=== PATIENT | male | born 1975 | race Caucasian/White ===

== ENCOUNTER 2016-10-22 15:22 | Emergency (ER) | payer MEDICARE, OTHER ==
[2016-10-22 16:08] LABS: HEMOGLOBIN 12.1 gm/dl (14.0-17.5); RED BLOOD COUNT 3.83 M/UL (4.20-5.50); WHITE BLOOD COUNT 15.7 K/UL (4.5-11.0)
[2017-01-19] MEDS ORDERED: CLARITIN 10MG T10 MG PO (04:28)
[2017-01-19] MEDS ORDERED: LEXAPRO TAB 1010 MG PO (04:30)
[2017-01-19] MEDS ORDERED: PROAIR HFA8.5 GM INH (04:39)
[2017-01-19] MEDS ORDERED: SPIRIVA18 MCG INH (04:40)
== END 2016-10-22 19:20 | disposition short-term general hospital (02) ==
LOC: ER1 15:22
PROVIDERS: Emergency Medicine
DX: A41.9 Sepsis, unspecified organism (principal); J18.9 Pneumonia, unspecified organism; R65.21 Severe sepsis with septic shock; K72.00 Acute and subacute hepatic failure without coma; N17.9 Acute kidney failure, unspecified; Z86.73 Personal history of transient ischemic attack (TIA), and cerebral infarction without residual deficits; Z88.0 Allergy status to penicillin; Z88.2 Allergy status to sulfonamides; Z88.5 Allergy status to narcotic agent; Z79.01 Long term (current) use of anticoagulants; Z79.899 Other long term (current) drug therapy
CPT/HCPCS: 36415; 51702; 70450; 71010; 80053; 80307; 81001; 82550; 82553; 82803; 82962; 83605; 83690; 83874; 83880; 84484; 85025; 85610; 85730; 87040; 87086; 93005; 96361; 96365; 96375; 99291; 99292; G0480; J0132; J0692; J7030; J7050

== ENCOUNTER 2016-11-11 00:48 | Inpatient (IN) | payer MEDICARE, OTHER ==
[~2016-11-11] VITALS: Ht 182.9 cm; Wt 54.0 kg
[2016-11-11 02:21] LABS: HEMOGLOBIN 14.3 gm/dl (14.0-17.5); RED BLOOD COUNT 4.55 M/UL (4.20-5.50); WHITE BLOOD COUNT 7.3 K/UL (4.5-11.0)
[2016-11-11] MEDS ORDERED: SPIRIVA18 MCG INH (08:29)
[2016-11-11] MEDS ORDERED: TENORMIN 25 MG25 MG PO (08:29)
[2016-11-11] MEDS ORDERED: PROVENTIL HFA 61 INH INH (08:29)
[2016-11-11] MEDS ORDERED: LOSARTAN POTASS50 MG PO (08:30)
[2016-11-11] MEDS ORDERED: COUMADIN7.5 MG PO (08:31)
[2016-11-11] MEDS ORDERED: TRAZODONE HCL50 MG PO (08:33)
[2016-11-11] MEDS ORDERED: ROXICODONE30 MG PO (08:33)
[2016-11-11] MEDS ORDERED: DURAGESIC 50 MCG1 EA TD (08:34)
[2016-11-11] MEDS ORDERED: NEURONTIN 300300 MG PO (08:35)
[2016-11-11] MEDS ORDERED: BACLOFEN20 MG PO (08:35)
[2016-11-11] MEDS ORDERED: ASPIRIN81 MG PO (08:36)
[2016-11-12 03:24] LABS: WHITE BLOOD COUNT 8.7 K/UL (4.5-11.0)
[2016-11-12 03:44] LABS: BUN/CREATININE RATIO 25 (0-10)
[2016-11-12 04:00] LABS: HEMOGLOBIN 11.2 gm/dl (14.0-17.5); RED BLOOD COUNT 3.58 M/UL (4.20-5.50)
[2016-11-13 03:38] LABS: HEMOGLOBIN 10.6 gm/dl (14.0-17.5); RED BLOOD COUNT 3.43 M/UL (4.20-5.50); WHITE BLOOD COUNT 6.7 K/UL (4.5-11.0)
[2016-11-13 03:47] LABS: BUN/CREATININE RATIO 20 (0-10)
[2016-11-14 11:40] LABS: HEMOGLOBIN 12.1 gm/dl (14.0-17.5); WHITE BLOOD COUNT 8.2 K/UL (4.5-11.0)
[2016-11-14 11:48] LABS: RED BLOOD COUNT 3.94 M/UL (4.20-5.50)
[2016-11-15 07:28] LABS: HEMOGLOBIN 11.9 gm/dl (14.0-17.5); RED BLOOD COUNT 3.83 M/UL (4.20-5.50); WHITE BLOOD COUNT 6.2 K/UL (4.5-11.0)
[2016-11-15 07:50] LABS: BUN/CREATININE RATIO 26 (0-10)
[2016-11-15] MEDS ORDERED: HABITROL 14 MG P1 EA TD (12:18)
[2016-11-15] MEDS ORDERED: PROTONIX40 MG PO (12:19)
[2016-11-15] MEDS ORDERED: SPIRIVA18 MCG INH (12:24)
[2016-11-15] MEDS ORDERED: OMNICEF 300 MG300 MG PO (12:30)
[2016-11-15] MEDS ORDERED: COLACE 100MG C100 MG PO (12:45)
[2016-11-15] MEDS ORDERED: MIRALAX17 GM PO (12:46)
[2016-11-15] MEDS ORDERED: PROZAC20 MG PO (12:47)
[2017-01-19] MEDS ORDERED: CLARITIN 10MG T10 MG PO (04:28)
[2017-01-19] MEDS ORDERED: LEXAPRO TAB 1010 MG PO (04:30)
[2017-01-19] MEDS ORDERED: PROAIR HFA8.5 GM INH (04:39)
[2017-01-19] MEDS ORDERED: SPIRIVA18 MCG INH (04:40)
== END 2016-11-15 13:30 | disposition home or self-care (01) | DRG 871 ==
LOC: ER1 00:48 → ZEROF 06:00 → CCU 08:24 → PROG CARE 11-13 13:15
PROVIDERS: Emergency Medicine; Physician Assistant; ADMIT Family Medicine
PROC: B246ZZ4 Ultrasonography of Right and Left Heart, Transesophageal (ICD-10-PCS; principal; 2016-11-11)
DX: A41.9 Sepsis, unspecified organism (principal); R65.21 Severe sepsis with septic shock; I69.354 Hemiplegia and hemiparesis following cerebral infarction affecting left non-dominant side; N17.9 Acute kidney failure, unspecified; Q87.418 Marfan syndrome with other cardiovascular manifestations; Z68.1 Body mass index [BMI] 19.9 or less, adult; R09.02 Hypoxemia; R63.6 Underweight; J43.9 Emphysema, unspecified; I10 Essential (primary) hypertension; I34.0 Nonrheumatic mitral (valve) insufficiency; M24.20 Disorder of ligament, unspecified site; M19.90 Unspecified osteoarthritis, unspecified site; G89.29 Other chronic pain; M54.6 Pain in thoracic spine; G43.909 Migraine, unspecified, not intractable, without status migrainosus; J30.9 Allergic rhinitis, unspecified; F17.210 Nicotine dependence, cigarettes, uncomplicated; Z87.01 Personal history of pneumonia (recurrent); Z87.74 Personal history of (corrected) congenital malformations of heart and circulatory system; Z95.2 Presence of prosthetic heart valve; Z91.19 Patient's noncompliance with other medical treatment and regimen; Z59.6 Low income; Z72.3 Lack of physical exercise; Z87.442 Personal history of urinary calculi; Z79.01 Long term (current) use of anticoagulants; Z79.82 Long term (current) use of aspirin; Z79.891 Long term (current) use of opiate analgesic; Z79.899 Other long term (current) drug therapy; Z88.3 Allergy status to other anti-infective agents; Z88.0 Allergy status to penicillin; Z88.2 Allergy status to sulfonamides; Z98.890 Other specified postprocedural states; Z82.79 Family history of other congenital malformations, deformations and chromosomal abnormalities; Z82.49 Family history of ischemic heart disease and other diseases of the circulatory system
CPT/HCPCS: ECHO; 36415; 70450; 71010; 71020; 80048; 80053; 81001; 82550; 82553; 83605; 83874; 84484; 85025; 85027; 85610; 85730; 86140; 87040; 87086; 93005; 93306; 94640; 94664; 96361; 96374; 96375; 96376; 99291; J0692; J1644; J1650; J2250; J2310; J3010; J7030; J7050; Q9963

== ENCOUNTER 2020-07-13 19:01 | Inpatient (IN) | payer MEDICARE, OTHER ==
[~2020-07-13] VITALS: Ht 177.8 cm; Wt 56.7 kg
[~2020-07-13 19:01] MED LIST: ALBUTEROL2.5 MG/3 M INH; ASPIRIN81 MG PO; AZITHROMYCIN250 MG PO; BACLOFEN20 MG PO; CLARITIN 10MG T10 MG PO; CLEOCIN HCL300 MG PO; COLACE 100MG C100 MG PO; COUMADIN 2.5MG2.5 MG PO; COUMADIN 7.5MG7.5 MG PO; COUMADIN10 MG PO; COUMADIN5 MG PO; COUMADIN7.5 MG PO; DIASTAT ACUDIA1 EAC1 PR; DURAGESIC 25 MCG1 EA TD; FLUZONE QU60 MCG/015 IM; HABITROL 14 MG P1 EA TD; HABITROL 21 MG P1 EA TD; KEPPRA1000 MG PO; LEVOFLOXACIN500 MG PO; LEXAPRO TAB 1010 MG PO; LIPITOR TAB 2020 MG PO; LOSARTAN POTASS50 MG PO; MIRALAX17 GM PO; NEURONTIN 300300 MG PO; OMNICEF 300 MG300 MG PO; PREDNISONE 10 M10 MG PO; PROTONIX40 MG PO; PROVENTIL HFA 61 INH INH; PROZAC40 MG PO; ROXICODONE30 MG PO; SPIRIVA18 MCG INH; TENORMIN 25 MG25 MG PO; TESSALON PERLE100 MG PO; TOPROL XL25 MG PO; TRAZODONE HCL100 MG PO; VENTOLIN HFA 66.7 GM INH; ZOFRAN4 MG PO; ZYVOX600 MG PO
[2020-07-13 21:17] LABS: HEMOGLOBIN 12.4 gm/dl (14.0-17.5); RED BLOOD COUNT 4.02 M/UL (4.20-5.50); WHITE BLOOD COUNT 8.8 K/UL (4.5-11.0)
[2020-07-13 21:31] LABS: BUN/CREATININE RATIO 29 (0-10)
[2020-07-14 07:46] LABS: RED BLOOD COUNT 4.2 M/UL (4.20-5.50); WHITE BLOOD COUNT 8.1 K/UL (4.5-11.0)
[2020-07-14 08:00] LABS: BUN/CREATININE RATIO 26 (0-10)
[2020-07-14] MEDS ORDERED: ROXICODONE30 MG PO (09:31)
[2020-07-14] MEDS ORDERED: NAYZILAM5 MG/0.1 M (09:36)
[2020-07-14] MEDS ORDERED: CLOBAZAM20 MG PO (09:38)
[2020-07-14] MEDS ORDERED: IRBESARTAN150 MG PO (09:39)
[2020-07-14] MEDS ORDERED: ZANAFLEX4 MG PO (09:40)
[2020-07-14] MEDS ORDERED: SEROQUEL25 MG PO (09:40)
[2020-07-14] MEDS ORDERED: ALBUTEROL2.5 MG/3 M INH (09:41)
[2020-07-15 04:56] LABS: HEMOGLOBIN 10.8 gm/dl (14.0-17.5); RED BLOOD COUNT 3.45 M/UL (4.20-5.50); WHITE BLOOD COUNT 5.7 K/UL (4.5-11.0)
[2020-07-15 05:26] LABS: BUN/CREATININE RATIO 29 (0-10)
--- NOTE | 2020-07-15 17:25 | NUR ---
PER MD ORDER DROP LEVOPHED DRIP RATE TO 3, TRY TO START WEANING OF THE LEVOPHED DRIP
[2020-07-16 02:37] LABS: HEMOGLOBIN 11.5 gm/dl (14.0-17.5); RED BLOOD COUNT 3.71 M/UL (4.20-5.50)
[2020-07-16 02:57] LABS: BUN/CREATININE RATIO 26 (0-10)
[2020-07-17 03:59] LABS: BUN/CREATININE RATIO 20 (0-10)
[2020-07-17 04:16] LABS: HEMOGLOBIN 11.9 gm/dl (14.0-17.5); RED BLOOD COUNT 3.85 M/UL (4.20-5.50); WHITE BLOOD COUNT 6.5 K/UL (4.5-11.0)
[2020-07-18 03:16] LABS: RED BLOOD COUNT 3.51 M/UL (4.20-5.50); WHITE BLOOD COUNT 6.3 K/UL (4.5-11.0)
[2020-07-18 03:56] LABS: BUN/CREATININE RATIO 16 (0-10)
[2020-07-19 03:49] LABS: HEMOGLOBIN 10.5 gm/dl (14.0-17.5); RED BLOOD COUNT 3.39 M/UL (4.20-5.50); WHITE BLOOD COUNT 5.5 K/UL (4.5-11.0)
[2020-07-19 04:05] LABS: BUN/CREATININE RATIO 21 (0-10)
[2020-07-19] MEDS ORDERED: MIDODRINE HCL2.5 MG PO (15:40)
[2020-07-19] MEDS ORDERED: NICOTINE PATCH1 EAC1 TD (15:40)
== END 2020-07-19 16:40 | disposition home or self-care (01) | DRG 193 ==
LOC: ER1 19:01 → PROG CARE 23:32 → CDU 23:32 → PROG CARE 07-14 07:04
PROVIDERS: Family Medicine; Internal Medicine Infectious Disease; Physician Assistant Medical; ADMIT Internal Medicine
DX: J12.9 Viral pneumonia, unspecified (principal); R57.1 Hypovolemic shock; I69.354 Hemiplegia and hemiparesis following cerebral infarction affecting left non-dominant side; F11.20 Opioid dependence, uncomplicated; E87.1 Hypo-osmolality and hyponatremia; J96.11 Chronic respiratory failure with hypoxia; Q87.89 Other specified congenital malformation syndromes, not elsewhere classified; Z20.828 Contact with and (suspected) exposure to other viral communicable diseases; I95.89 Other hypotension; I10 Essential (primary) hypertension; R79.1 Abnormal coagulation profile; G40.909 Epilepsy, unspecified, not intractable, without status epilepticus; F17.210 Nicotine dependence, cigarettes, uncomplicated; D64.9 Anemia, unspecified; G89.4 Chronic pain syndrome; Z74.01 Bed confinement status; Z79.01 Long term (current) use of anticoagulants; Z79.899 Other long term (current) drug therapy; Z88.1 Allergy status to other antibiotic agents; Z88.0 Allergy status to penicillin; Z95.2 Presence of prosthetic heart valve; Z88.2 Allergy status to sulfonamides; Z82.49 Family history of ischemic heart disease and other diseases of the circulatory system; Z79.82 Long term (current) use of aspirin
CPT/HCPCS: 36415; 36600; 71045; 80053; 81001; 82533; 82803; 82962; 83605; 83735; 84439; 84443; 85025; 85610; 85730; 87040; 93005; 94640; 94664; 94760; 96365; 96367; 97162; 97166; 99285; A6212; J0696; J1644; J2543; J7030; U0002; U0003

== ENCOUNTER 2020-12-30 05:55 | Inpatient (IN) | payer MEDICARE, OTHER ==
[~2020-12-30] VITALS: Ht 182.9 cm; Wt 61.0 kg
[~2020-12-30 05:55] MED LIST changes: +CLOBAZAM20 MG PO; +IRBESARTAN150 MG PO; +MIDODRINE HCL2.5 MG PO; +NAYZILAM5 MG/0.1 M; +NICOTINE PATCH1 EAC1 TD; +SEROQUEL25 MG PO; +ZANAFLEX4 MG PO
[2020-12-30 06:25] LABS: HEMOGLOBIN 11.9 gm/dl (14.0-17.5); RED BLOOD COUNT 3.81 M/UL (4.20-5.50); WHITE BLOOD COUNT 6.4 K/UL (4.5-11.0)
[2020-12-30 07:04] LABS: BUN/CREATININE RATIO 18 (0-10)
[2020-12-30] MEDS ORDERED: TIZANIDINE HCL4 MG PO (13:44)
[2020-12-30] MEDS ORDERED: BACTROBAN OINT22 GM EXT (13:45)
[2020-12-30] MEDS ORDERED: ZANAFLEX 4 MG TA4 MG PO (13:45)
[2020-12-30] MEDS ORDERED: JANTOVEN2.5 MG PO (13:47)
[2020-12-30] MEDS ORDERED: JANTOVEN5 MG PO (13:49)
[2020-12-30] MEDS ORDERED: MIDAZOLAM (13:51)
[2020-12-30] MEDS ORDERED: ALBUTEROL2.5 MG/3 M INH (13:53)
[2020-12-30] MEDS ORDERED: OXCARBAZEPINE150 MG PO (13:54)
[2020-12-31 03:32] LABS: HEMOGLOBIN 10.4 gm/dl (14.0-17.5)
[2020-12-31 03:33] LABS: RED BLOOD COUNT 3.34 M/UL (4.20-5.50); WHITE BLOOD COUNT 4.6 K/UL (4.5-11.0)
[2020-12-31 03:56] LABS: BUN/CREATININE RATIO 20 (0-10)
[2021-01-01] MEDS ORDERED: OMNICEF 300 MG300 MG PO (13:24)
--- NOTE | 2021-01-01 13:55 | NUR ---
CONTACTED DR. SPENCE WITH WIFES CONCERN WITH HIM BEING DISCHARGED TODAY. MD STATED SHE WOULD CONTACT .
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
[2021-01-03 03:37] LABS: HEMOGLOBIN 10.2 gm/dl (14.0-17.5); RED BLOOD COUNT 3.23 M/UL (4.20-5.50); WHITE BLOOD COUNT 5.5 K/UL (4.5-11.0)
[2021-01-03 04:04] LABS: BUN/CREATININE RATIO 11 (0-10)
[2021-01-03] MEDS ORDERED: IPRAT-ALBUT 0.5-3 ML INH (13:29)
[2021-01-04 04:01] LABS: BUN/CREATININE RATIO 14 (0-10)
== END 2021-01-04 14:40 | disposition home health service (06) | DRG 871 ==
LOC: ER1 05:55 → CDU 11:39 → MED SURG 4 11:39 → CCU 12:53 → MED SURG 4 12-31 16:00
PROVIDERS: Emergency Medicine; Physician Assistant Medical; ADMIT Internal Medicine
PROC: 02HV33Z Insertion of Infusion Device into Superior Vena Cava, Percutaneous Approach (ICD-10-PCS; principal; 2020-12-30)
PROC: 3E033XZ Introduction of Vasopressor into Peripheral Vein, Percutaneous Approach (ICD-10-PCS; 2020-12-30)
PROC: 30233K1 Transfusion of Nonautologous Frozen Plasma into Peripheral Vein, Percutaneous Approach (ICD-10-PCS; 2020-12-30)
DX: A41.9 Sepsis, unspecified organism (principal); J18.9 Pneumonia, unspecified organism; J96.00 Acute respiratory failure, unspecified whether with hypoxia or hypercapnia; J44.0 Chronic obstructive pulmonary disease with (acute) lower respiratory infection; Q25.0 Patent ductus arteriosus; Q87.40 Marfan syndrome, unspecified; I69.354 Hemiplegia and hemiparesis following cerebral infarction affecting left non-dominant side; I95.9 Hypotension, unspecified; R79.1 Abnormal coagulation profile; D64.9 Anemia, unspecified; I10 Essential (primary) hypertension; F32.9 Major depressive disorder, single episode, unspecified; F17.210 Nicotine dependence, cigarettes, uncomplicated; G89.4 Chronic pain syndrome; M19.90 Unspecified osteoarthritis, unspecified site; G47.00 Insomnia, unspecified; G62.9 Polyneuropathy, unspecified; Z96.652 Presence of left artificial knee joint; I08.0 Rheumatic disorders of both mitral and aortic valves; Z20.822 Contact with and (suspected) exposure to COVID-19; Z88.0 Allergy status to penicillin; Z88.2 Allergy status to sulfonamides; Z79.01 Long term (current) use of anticoagulants; Z95.2 Presence of prosthetic heart valve; Z88.1 Allergy status to other antibiotic agents; Z98.890 Other specified postprocedural states
CPT/HCPCS: 0240U; 36415; 36430; 36556; 70450; 71045; 74018; 80048; 80053; 81001; 82550; 82553; 83605; 83690; 83735; 83874; 83880; 84484; 85025; 85027; 85610; 85730; 86900; 86901; 86927; 87040; 87086; 93005; 94640; 94664; 94760; 96374; 96375; 99285; C1751; J0692; J1940; J2405; J7030; J7050; P9017

== ENCOUNTER 2021-07-29 18:19 | Emergency (ER) | payer MEDICARE ==
[~2021-07-29 18:19] MED LIST changes: +BACTROBAN OINT22 GM EXT; +IPRAT-ALBUT 0.5-3 ML INH; +JANTOVEN2.5 MG PO; +JANTOVEN5 MG PO; +MIDAZOLAM; +OXCARBAZEPINE150 MG PO; +TIZANIDINE HCL4 MG PO; +ZANAFLEX 4 MG TA4 MG PO
[2021-07-29 19:53] LABS: HEMOGLOBIN 15.2 gm/dl (14.0-17.5); RED BLOOD COUNT 4.97 M/UL (4.20-5.50); WHITE BLOOD COUNT 10.6 K/UL (4.5-11.0)
[2021-07-29 20:13] LABS: BUN/CREATININE RATIO 24 (0-10)
== END 2021-07-30 00:35 | disposition home or self-care (01) ==
LOC: ER1 18:19
PROVIDERS: Physician Assistant
DX: R07.89 Other chest pain (principal); E78.5 Hyperlipidemia, unspecified; J44.9 Chronic obstructive pulmonary disease, unspecified; F17.210 Nicotine dependence, cigarettes, uncomplicated; Z88.2 Allergy status to sulfonamides; Z88.0 Allergy status to penicillin; Z20.822 Contact with and (suspected) exposure to COVID-19
CPT/HCPCS: 71045; 80053; 82550; 82553; 83874; 84484; 85025; 85379; 85610; 85730; 93005; 94664; 94760; 99285; J1100; Q9967; U0002

== ENCOUNTER 2021-11-27 23:06 | Inpatient (IN) | payer MEDICARE ==
[~2021-11-27] VITALS: Ht 182.9 cm; Wt 54.4 kg
[~2021-11-27 23:06] MED LIST changes: +ZOFRAN 4 MG TAB4 MG PO; -ZOFRAN4 MG PO
[2021-11-28 00:25] LABS: HEMOGLOBIN 10.8 gm/dl (14.0-17.5); RED BLOOD COUNT 3.54 M/UL (4.20-5.50); WHITE BLOOD COUNT 5.7 K/UL (4.5-11.0)
[2021-11-28 00:45] LABS: BUN/CREATININE RATIO 28 (0-10)
[2021-11-28] MEDS ORDERED: TIZANIDINE HCL4 MG PO (10:28)
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
== END 2021-11-29 03:10 | DRG 313 ==
LOC: ER1 23:06 → CDU 11-28 01:58 → MED SURG 4 11-28 13:15
PROVIDERS: Family Medicine; ADMIT Internal Medicine
DX: R07.89 Other chest pain (principal); R45.851 Suicidal ideations; Q87.40 Marfan syndrome, unspecified; I69.354 Hemiplegia and hemiparesis following cerebral infarction affecting left non-dominant side; Q25.0 Patent ductus arteriosus; Z95.2 Presence of prosthetic heart valve; J44.9 Chronic obstructive pulmonary disease, unspecified; G40.909 Epilepsy, unspecified, not intractable, without status epilepticus; F17.210 Nicotine dependence, cigarettes, uncomplicated; T50.905A Adverse effect of unspecified drugs, medicaments and biological substances, initial encounter; I10 Essential (primary) hypertension; G89.4 Chronic pain syndrome; I95.9 Hypotension, unspecified; Z88.0 Allergy status to penicillin; Z88.2 Allergy status to sulfonamides; Z82.49 Family history of ischemic heart disease and other diseases of the circulatory system
CPT/HCPCS: ECHO; 71045; 80053; 80307; 81001; 82550; 82553; 83735; 84439; 84443; 84484; 85025; 85610; 93005; 93306; 94640; 94664; 94760; 99285; J3430; U0002

== ENCOUNTER → 2021-12-31 | Outpatient (CLI) | payer MEDICARE | LOC: LAB 17:38 | DX: Z51.81 Encounter for therapeutic drug level monitoring (principal); Z79.01 Long term (current) use of anticoagulants | CPT/HCPCS: 85610 ==